=== PATIENT | male | born 1950 | race Caucasian/White ===

== ENCOUNTER → 2016-10-24 | Outpatient (CLI) | payer BC ==
[~2016-10-24] MED LIST: CIPR1TAB10 PO; COEN1CAP17 PO; GARL1TAB8 PO; GREE250C2 PO; HYDR-5688 PO; IVIG IV; MILK140C PO; MULTTAB58 PO; NUTR1000 PO; PHEN-876 PO
[2016-10-24 17:13] LABS: IMMUNOGLOBULN A < 7.8 mg/dL (70-400)
== END | disposition home or self-care (01) ==
LOC: C.LAB1850 15:43
PROVIDERS: ATTEND Internal Medicine Pulmonary Disease
DX: Z94.81 Bone marrow transplant status (principal)

== ENCOUNTER → 2016-11-05 | Outpatient (CLI) | payer BC ==
[~2016-11-05] MED LIST changes: -CIPR1TAB10 PO; -HYDR-5688 PO; -PHEN-876 PO
[2016-11-05 10:43] LABS: ESTIMATED AVERAGE GLUCOSE 134 mg/dl; HA1C FLAG Normal (Normal)
[2016-11-05 10:48] LABS: ALT/SGPT 27 U/L (12-78); AST/SGOT 23 U/L (15-37); BLOOD UREA NITROGEN 22 mg/dl (7-18); BUN/CREATININE RATIO 16.9 (10-20); CALCIUM 8.9 mg/dl (8.5-10.1); CARBON DIOXIDE 30 mmol/L (21-32); CHLORIDE 107 mmol/L (98-107); CHOLESTEROL 242 mg/dl (0-200); GLUCOSE 101 mg/dl (70-99); POTASSIUM 4.2 mmol/L (3.5-5.1); SODIUM 142 mmol/L (136-145)
[2016-11-05 10:51] LABS: CHOLESTEROL/HDL RATIO 6.4; HDL CHOLESTEROL 38 mg/dl; LDL CHOLESTEROL CALCULATED 144 mg/dl; TRIGLYCERIDES 299 mg/dl (0-150); VERY LOW DENSITY LIPOPROT CALC 60 mg/dl
== END | disposition home or self-care (01) ==
LOC: C.LABBC 08:11
PROVIDERS: ATTEND Internal Medicine
DX: R73.9 Hyperglycemia, unspecified (principal); E78.5 Hyperlipidemia, unspecified

== ENCOUNTER → 2017-09-18 | Outpatient (CLI) | payer OTHER ==
[2017-09-18 10:59] LABS: BASO % 0.3 %; BASO ABS # 0.02 K/uL (0-0.2); EOS % 2.9 %; EOS ABS # 0.21 K/uL (0-0.5); HEMATOCRIT 36.7 % (42-52); HEMOGLOBIN 12.6 g/dL (14.0-18.0); IG# 0.02 K/uL (0.00-0.02); LYMPH % 28.9 %; MEAN CORPUSCULAR HEMOGLOBIN 27.8 pg (25-34); MEAN CORPUSCULAR HGB CONC 34.3 g/dl (32-36); MEAN PLATELET VOLUME 10.5 fL (7.4-10.4); MONO ABS # 0.87 K/uL (0.11-0.59); NEUT % 55.6 %; NEUT ABS # 4.04 K/uL (1.4-6.5); PLATELET COUNT 271 K/uL (130-400); RED CELL DISTRIBUTION WIDTH CV 14.5 % (11.5-14.5); RED CELL DISTRIBUTION WIDTH SD 42.5 fL (36.4-46.3); WHITE BLOOD COUNT 7.26 K/uL (4.8-10.8)
[2017-09-18 11:38] LABS: BLOOD UREA NITROGEN 21 mg/dl (7-18); CALCIUM 9.1 mg/dl (8.5-10.1); CARBON DIOXIDE 26 mmol/L (21-32); CHOLESTEROL 282 mg/dl (0-200); GLUCOSE 105 mg/dl (70-99); SODIUM 138 mmol/L (136-145)
[2017-09-18 11:42] LABS: LDL CHOLESTEROL CALCULATED 178 mg/dl
== END | disposition home or self-care (01) ==
LOC: C.LABBC 07:35
PROVIDERS: ATTEND Internal Medicine
DX: Z85.72 Personal history of non-Hodgkin lymphomas (principal); E78.5 Hyperlipidemia, unspecified; R73.9 Hyperglycemia, unspecified; N28.9 Disorder of kidney and ureter, unspecified

== ENCOUNTER → 2017-11-27 | Outpatient (CLI) | payer OTHER ==
[2017-11-27 13:08] LABS: ALBUMIN 3.7 gm/dl (3.4-5.0); ALT/SGPT 32 U/L (12-78); AST/SGOT 25 U/L (15-37); BLOOD UREA NITROGEN 27 mg/dl (7-18); CALCIUM 9.2 mg/dl (8.5-10.1); CARBON DIOXIDE 28 mmol/L (21-32); CREATININE 1.46 mg/dl (0.60-1.40); GLUCOSE 96 mg/dl (70-99); POTASSIUM 4.1 mmol/L (3.5-5.1); SODIUM 136 mmol/L (136-145)
[2017-11-27 13:19] LABS: ALKALINE PHOSPHATASE 59 U/L (45-117); TOTAL PROTEIN 8.3 gm/dl (6.4-8.2)
== END | disposition home or self-care (01) ==
LOC: C.LAB1850 09:42
PROVIDERS: ATTEND Physician Assistant
DX: R42 Dizziness and giddiness (principal); H53.9 Unspecified visual disturbance; Z94.81 Bone marrow transplant status

== ENCOUNTER → 2017-12-02 | Outpatient (CLI) | payer OTHER | END | disposition home or self-care (01) | LOC: C.LABBC 08:53 | PROVIDERS: ATTEND Physician Assistant | DX: R42 Dizziness and giddiness (principal) ==

== ENCOUNTER → 2017-12-22 | Outpatient (CLI) | payer OTHER ==
--- NOTE | 2017-12-22 16:13 | DIAGNOSTIC IMAGING REPORT ---
L HIP UNILATERAL 2 VIEWS HISTORY: 67 years-old Male M54.32 Sciatica of left [id number] acute left hip pain COMPARISON: CT abdomen and pelvis 04/15/2016 TECHNIQUE: 2 views of the left hip FINDINGS: Mild osteoarthritis about the left femoral acetabular joint with mild general changes also seen within the pubic symphysis and bilateral SI joints. No acute fracture or dislocation is identified. Soft tissues are within normal limits without opaque foreign body. Probable phleboliths project over the pelvis. IMPRESSION: No acute fracture or dislocation. The above report was generated using voice recognition software. It may contain grammatical, syntax or spelling errors. Electronically signed by: Bret Hartley M.D. 12/22/2017 4:12 PM Dictated Date/Time: 12/22/2017 4:11 PM
--- NOTE | 2017-12-22 16:22 | DIAGNOSTIC IMAGING REPORT ---
L-SPINE MIN 4 VIEWS ROUTINE HISTORY: 67 years-old Male M54.32 Sciatica of left [id number] acute left-sided back pain COMPARISON: CT abdomen and pelvis 04/15/2016 TECHNIQUE: 5 views of the lumbar spine FINDINGS: 5 nonrib-bearing lumbar type vertebral segments are present. There is mild convex left curvature of the lumbar spine. No acute fracture or subluxation. Moderate to severe intervertebral disc space narrowing at L4-L5 and L5-S1 with moderate facet arthrosis also seen at these levels. Minimal multilevel endplate spurring. Intervertebral disc space narrowing at T9-T10. Indeterminate cluster of calcifications measuring up to 2.1 cm are seen projecting about the midabdomen, best seen on the RPO view within the expected region of the right upper quadrant, not definitively seen on the additional views. Soft tissues are otherwise unremarkable. IMPRESSION: 1. No acute fracture or subluxation identified. 2. Degenerative changes as above. The above report was generated using voice recognition software. It may contain grammatical, syntax or spelling errors. Electronically signed by: Bret Hartley M.D. 12/22/2017 4:20 PM Dictated Date/Time: 12/22/2017 4:17 PM
== END | disposition home or self-care (01) ==
LOC: C.RAD1850 15:54
PROVIDERS: ATTEND Internal Medicine
DX: M54.32 Sciatica, left side (principal)

== ENCOUNTER 2025-02-03 11:17 | Observation (INO) ==
[2025-02-03] MEDS: OPTIRAY 320 125ml IV ONE (11:40)
--- NOTE | 2025-02-03 11:56 | CT Scan Report ---
CT SCAN OF THE BRAIN WITHOUT IV CONTRAST CLINICAL HISTORY: Neurological deficit. Stroke like symptoms COMPARISON STUDY: No prior studies are available for comparison at the time of dictation. TECHNIQUE: Unenhanced axial CT scan of the brain is performed from the vertex to the skull base. A do se lowering technique was utilized adhering to the principles of ALARA. FINDINGS: Brain parenchyma: There is age-related involutional change noting mild subcortical and periventricula r microangiopathic disease. There is no hemorrhage, mass effect, or evidence of acute territorial isc hemia by CT criteria. Leyva-white matter differentiation is preserved. No extra-axial fluid collection is seen. Ventricles, sulci, cisterns: Prominent secondary to involutional change. Intracranial vasculature: There is atherosclerotic calcification of the cavernous carotid arteries. Calvarium: Unremarkable. Sinuses and mastoids: The visualized paranasal sinuses are clear. The mastoid air cells are well pneu matized. Orbits: The bony orbits are grossly intact. There are bilateral ocular lens implants. IMPRESSION: There is no hemorrhage, mass effect, or evidence of acute territorial ischemia by CT merlene farias. ACT 112: Negative or not required by law. Electronically signed by: Curtis Fonseca M.D. 02/03/2025 11:55 AM
--- NOTE | 2025-02-03 11:57 | CT Scan Report ---
CTA ANGIOGRAPHY OF THE HEAD CLINICAL HISTORY: neuro deficit, acute stroke suspected COMPARISON STUDY: No previous studies for comparison. TECHNIQUE: Helical axial images of the head were obtained following uneventful intravenous administr ation of 118 cc of Optiray. Sagittal and coronal reconstructions were viewed as well as maximal inten sity projections on an independent 3-D workstation. Automated exposure control was utilized for the study. A dose lowering technique was utilized adhering to the principles of ALARA. FINDINGS: Please note that the head CT will be reported separately. No acute intracranial hemorrhage, midline shift or mass effect is present. Ventricular system is normal. Basal cisterns are patent. Th ere are no extra-axial collections. The bilateral M1, M2, A1 and A2 segments are patent. There is no intracranial aneurysm. Posterior circulation is intact. No intracranial vessel occlusion is identifie d. 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 IMPRESSION: Unremarkable CTA of the head. ACT 112: Negative or not required by law. Electronically signed by: Martin Walls M.D. 02/03/2025 11:56 AM
[2025-02-03 11:58] LABS: Hematocrit (blood only) 35.7 % (42.0-52.0); Hemoglobin 12.3 g/dl (14.0-18.0); Immature Granulocytes # (auto) 0.02 K/uL (0.01-0.20); Immature Granulocytes % (auto) 0.4 %; Mean Corpuscular Hemoglobin 27.9 pg (25.0-34.0); Mean Corpuscular Volume 81.0 fL (80.0-100.0); Platelet Count 222 K/uL (130-400); RDW Standard Deviation 39.6 fL (36.4-46.3); Red Blood Count 4.41 M/uL (4.70-6.10); White Blood Count 5.14 K/ul (4.8-10.8)
--- NOTE | 2025-02-03 11:59 | CT Scan Report ---
CT angio neck with con CLINICAL HISTORY: neuro deficit, acute stroke suspected. TECHNIQUE: Following the IV administration of 120 of Optiray, CT angiogram of the neck was performed from the aortic arch to the skull base. Images are reviewed in the axial, sagittal, and coronal plane s. 3-D MIPS images are created and assessed. IV contrast was administered without complication. All m easurements were calculated based on NASCET criteria. A dose lowering technique was utilized adherin g to the principles of ALARA. CT DOSE: 1305.59 mGy.cm COMPARISON STUDY: None FINDINGS: Bilateral common and internal carotid arteries and bilateral vertebral arteries showed no s ignificant narrowing or occlusion. There is a multinodular goiter. There are cervical spine degenerat carissa changes. IMPRESSION: No significant arterial narrowing or occlusion seen at the neck. ACT 112: Negative or not required by law. The above report was generated using voice recognition software. It may contain grammatical, syntax o r spelling errors. Electronically signed by: Willma Faith M.D. 02/03/2025 11:58 AM
[2025-02-03 12:16] LABS: Alanine Aminotransferase 16.0 U/L (7-52); Albumin Globulin Ratio 1.1 (0.9-2); Alkaline Phosphatase 46.0 U/L (34-104); Anion Gap 6.0 (3-11); Bilirubin,Total 1.0 mg/dl (0.2-1.0); Blood Urea Nitrogen 25.0 mg/dl (6-23); Calcium 9.0 mg/dl (8.6-10.3); Carbon Dioxide 27.0 mmol/L (21-32); Chloride 105.0 mmol/L (98-107); Creatinine Clr Calc Pharmacy 45.4 ml/min; Globulin 3.4 gm/dl (2.5-4.0); Glucose 102.0 mg/dl (70-99(Fasting)); Magnesium 1.8 mg/dl (1.7-2.4); Potassium 4.2 mmol/L (3.5-5.1); Sodium 138.0 mmol/L (136-145); Total Protein 7.2 gm/dl (6.0-8.3)
--- NOTE | 2025-02-03 12:24 | XRay Report ---
XR chest 1V portable CLINICAL HISTORY: neuro deficit, acute stroke suspected COMPARISON STUDY: 10/29/2021 FINDINGS: There is mild cardiomegaly without pulmonary vascular congestion. Inspiration is very shall ow which limits the exam. No consolidation or pleural effusion seen. No pneumothorax. IMPRESSION: Shallow inspiration limits the exam. No acute findings seen. ACT 112: Negative or not required by law. Electronically signed by: Willam Faith M.D. 02/03/2025 12:23 PM
[2025-02-03 12:29] LABS: INR 1.0 (0.9-1.1); Partial Thromboplastin Time 26 Seconds (21-31); Prothrombin Time 10.4 Seconds (9.0-12.0)
--- NOTE | 2025-02-03 13:13 | History & Physical Report ---
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 CT head and neck with no acute findings. Patient is being admitted for possible Transient Ischemic Attack and further workup #TIA -Etiology is consistent with TIA -Initially reported dizziness, facial droop, slurring of speech and dizziness -Symptoms lasted for approximately 20-25 minutes and resolved after that -NIHSS score of zero, not candidate for tPA as symptoms -Loading dose of Aspirin and Plavix given -Continue Aspirin 81mg and Plavix 75mg -Atorvastatin 40mh qday -EKG: he has sinus bradycardia with 1st degree AV block -No acute findings seen on chest XR -CTH, CT Angio of head and neck with no acute findings -CBC with low hemoglobin 12.3; CMP looks normal -MRI Brain w/o contrast; MRA Brain w/o contrast, MRA neck w and without contrast -Troponin negative -Pending lipid panel and Hba1c -Admit to tele -2D Echo bubble study Chronic conditions BPH: Continue Tamsulosin Dispo: med/surg with tele Code: DNR/DNI DVT prophylaxis: hold for now History of Present Illness Chief Complaint: Stroke Like Symptoms Primary Care Provider: MD Doug ToneyCarlos spears is a 74 Y O male with PMH of BPH, Non Hodgkin Lymphoma s/p bone marrow transplantation presented to ER today He was working in the basement and he got dizzy and after that started having blurry vision and slurring of speech. Speech slurring lasted for about 20 -25 minutes and resolved after that He was not able to stand and needed wheel chair to get to the car. Also his mentioned he had some drooping of left side of face. Immediately after the event they came to hospital. No nausea, vomiting , headache, abdominal pain Currently patient still complaining of double vision , dizziness partially resolved , speech slurring is resolved He used to smoke but left when he was 36 and occasional drinker. Living situation: Lives with his ; son is here for summer vacation to help them BP on presentation:152/91 Allergies Allergy/AdvReac Type Severity Reaction Status Date / Time No Known Drug Allergies Allergy Verified 10/13/24 08:58 Home Medications Medication Instructions Recorded Confirmed Type garlic 500 mg PO QAM 01/05/19 02/03/25 History milk thistle seed extract 200 mg 200 mg PO QAM 01/05/19 02/03/25 History capsule multivitamin with iron 1 tab PO QAM 01/05/19 02/03/25 History coenzyme Q10 100 mg tablet 100 mg PO QAM 03/08/19 02/03/25 History loratadine 10 mg tablet (Claritin) 10 mg PO QAM PRN Allergy Symptoms 10/03/19 02/03/25 History cholecalciferol (vitamin D3) 50 2,000 unit PO QAM 11/12/21 02/03/25 History mcg (2,000 unit) capsule (Vitamin D3) alfuzosin 10 mg tablet,extended 10 mg PO HS #90 tabs 01/08/24 02/03/25 Rx release 24 hr sildenafil 50 mg tablet 50 mg PO DAILY PRN sexual activity 11/03/24 02/03/25 Rx #10 tabs icosapent ethyl 1 gram capsule 2 g (2 x 1 gram) PO BID #360 caps 11/10/24 0 02/03/25 Rx (Vascepa) immune glob,gamma(IgG) 10 10 g IV UD 02/03/25 02/03/25 History aseq-uba-npse-IgA 0 to 50 mcg/mL IV solution (Gammagard S-D (IgA < 1 mcg/mL)) Past Med/Surg History Problem List (Updated 02/03/25 @ 16:11 by Tre Loera MD) Transient ischemic attack Ambulatory dysfunction (Acute) Double vision (Acute) Acute CVA (cerebrovascular accident) (Acute) Elevated PSA Right hip pain Olecranon bursitis Encounter for pre-operative examination Hypogammaglobulinemia, acquired (Chronic) Non-Hodgkin lymphoma in remission (Chronic) Anemia (Chronic) Bladder cancer (Chronic) Pre-diabetes (Chronic) Hypercholesterolemia (Acute) Enlarged prostate with lower urinary tract symptoms (LUTS) (Acute) Fever Insect bite History of colon polyps Dyslipidemia (Acute) Migraine headache (Acute) Nontoxic multinodular goiter (Acute) Renal insufficiency (Acute) Sciatica of left side (Acute) Medical History Osteoarthritis BPH (benign prostatic hyperplasia) Borderline diabetes History of skin cancer History of bladder cancer History of lymphoma History of migraine headaches Surgical History History of cataract surgery History of wisdom tooth extraction History of biopsy of bladder History of colonoscopy Status post surgical removal and fulguration of bladder neoplasm (~2016) Status post autologous bone marrow transplant Family History Mother Breast cancer Cancer Father Prostate cancer Grandmother (Maternal) Diabetes Grandmother (Paternal) Diabetes Sister Kidney disease Cancer Other No family history of adverse response to anesthesia Denies family history of Crohn's disease Heart disease Lung cancer Lung disease Hypertension Stroke Social History Smoking Status: Former smoker Age Quit Using Tobacco: 24; Second Hand Exposure: No; Do You Dip or Chew Tobacco: No; Tobacco Cessation Education Requested by Patient: No Hx Alcohol Use: Yes Alcohol type: beer Hx Substance Use: No Preferred Language: Vietnamese Communication Ability: Effective Visual Impairment: No Limitations 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 Bench Required: No Beliefs That Will Affect Care: None marital status: Current Living Situation: Spouse and Family Current Living Situation Comment: home with current occupational status: employed 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 Other Information That Helps Us Care for You: No Feels Safe at Home: Yes Safety Concerns: Feels Safe At This Time Childhood Exposure to Second-Hand Smoke: No caffeine: Yes Dental Care, Regularly: Yes Physical Activity Frequency: 3-4 Times per Week Seatbelt Use: always Sunscreen Use: Yes Assistive Devices: None Review of Systems Review of Systems: as per HPI Physical Exam Physical Exam: Constitutional: Well appearing, No acute distress, PILCCOD: Negative HEENT: Atraumatic, Normocephalic, No conjunctival injection CVS: S1 S2 no murmur, Regular Rhythm, no LE edema Respiratory: BL equal air entry with NVBS. No rhonchi, wheezes, or crackles. No increased work of breathing GI: Soft, Nondistended, Nontender, Normal Bowel sounds + MSK: No gross deformities noted Skin: Warm, Dry, No rashes Neuro: Alert, Oriented to TPP, No Focal deficit Psych: Mood and Affect congruent, Cooperative on exam Results & Data Results & Data Vital Signs (Past 12 Hours) Vital Signs Temp Pulse Pulse Resp BP BP Pulse Ox 02/03/25 13:00 43 L 13 138/64 97 02/03/25 12:30 40 L 16 145/75 H 97 02/03/25 12:10 48 L 20 130/104 H 95 02/03/25 12:01 49 L 16 130/104 H 95 02/03/25 11:55 47 L 02/03/25 11:49 02/03/25 11:48 44 L 19 145/67 H 95 02/03/25 11:23 36.4 C L 48 L 18 138/63 97 O2 Del Method 02/03/25 13:00 02/03/25 12:30 02/03/25 12:10 Room Air 02/03/25 12:01 Room Air 02/03/25 11:55 02/03/25 11:49 Room Air 02/03/25 11:48 Room Air 02/03/25 11:23 Room Air Supervising Physician Co-Signing Physician Notes I personally examined the patient and verified all vizcaino points of history and exam, discussed case, and agree with decision making with Dr Loera Double vision improving but still remains. Otherwise symptoms have resolved. Vitals noted, in general he is awake and alert pleasant no distress. HEENT normocephalic atraumatic mucous membranes moist. He is frequently closing 1 eye to alleviate the double vision, but he does note that it is improving. Breathing unlabored no accessory muscle use good effort. Skin without rashes pallor or icterus. Labs and diagnostics noted. TIA versus CVAgiven age gender and dyslipidemia, intravascular atherosclerosis would be the most likely. Large vessel atheroembolic ruled out by CT angiograms. Age and prior NHL does make me worry about atrial fibrillation/central embolic in him even more than averagecardiac monitoring, echocardiogram, and if the above are negative definitely an event monitor. Discussed lipidshe notes that he was on some sort of statin 15 years ago that caused acheshe does not remember what, and as we discussed risk/benefit he is certainly willing to give it another try. Given that he was on something 15 years ago, we discussed that most likely it would probably have not been rosuvastatin just simply because coverage of that was difficult at the time. Will reach out to his PCP to see if he at all remembers, and if not we will give trial of rosuvastatin. DVT proph - lovenox
--- NOTE | 2025-02-03 13:14 | Emergency Department Note ---
Impression & Plan Acute CVA (cerebrovascular accident), Double vision, Ambulatory dysfunction ED Provider Note NAME: ALBINA FRANCIS AGE: 74 SEX: M : 1950 ARRIVES VIA: Walk-In INFORMANT: Patient ED PROVIDER(S): Merlin Bowens DO CHIEF COMPLAINT: Slurred speech, double vision HPI: Patient is a 74-year-old male who presents ER for slurred speech, double vision and trouble walking. Symptoms initially started around 1050 to 11 AM. He has never had this before. Does have a history of vertigo per but notes this is completely different and he never had any other symptoms with it. Denies any focal weakness or numbness. No chest pain or shortness of breath. No nausea vomiting or diarrhea. He denies any focal weakness or numbness in the arms or legs. He notes his symptoms are improving at this time. ADDITIONAL HISTORY OBTAINED: Per HPI Chronic Medical/Social Conditions Affecting Care: Per HPI PAST MEDICAL HISTORY:See Below PAST SURGICAL HISTORY:See Below FAMILY HISTORY:See Below SOCIAL HISTORY:See Below HOME MEDICATIONS:See Below ALLERGIES:See Below VITALS:See Below PHYSICAL EXAMINATION: GENERAL: Sitting up in bed, alert, well appearing, well nourished, no distress, non-toxic EYE EXAM: normal conjunctiva. Disconjugate gaze OROPHARYNX: no exudate, no erythema, lips, buccal mucosa, and tongue normal and mucous membranes are moist NECK: supple, no nuchal rigidity, no adenopathy, non-tender LUNGS: Clear to auscultation. Normal chest wall mechanics HEART: no murmurs, S1 normal and S2 normal ABDOMEN: abdomen soft, non-tender, normo-active bowel sounds, no masses, no rebound or guarding. UPPER EXTREMITIES: upper extremities are grossly normal. LOWER EXTREMITIES: No pitting edema. NEURO EXAM: Normal sensorium, no drift. Pvozir-gc-robu is intact. No focal weakness in the arms or legs. Disconjugate gaze with the eyes and vertical misalignment of the eyes MEDICAL DECISION MAKING: Patient is a 74-year-old male who presents to the ER for the above-stated complaint. Patient had sudden onset of double vision, unsteadiness, dizziness and slurred speech was started around 1050. IVs were established and blood work was obtained. Patient was initially seen in the room. Stroke alert was immediately called. Patient was taken emergently to CT. CTs and CTA showed no large bleeds or LVO's. Discussed with [facility] telestroke Dr. Boyer. He saw and evaluate the patient. Symptoms improved. At this time he did not feel the patient was a TNK candidate. He does feel this consistent with posterior stroke. Discussed case with the hospitalist for further evaluation management and treatment. Consults/Care Managements Discussions: Per [facility] Triage Nursing notes reviewed. Limited review of prior medical records performed Vital Signs: reviewed and remarkable for hypertension Differential diagnosis: Differential Diagnosis includes but is not limited to ischemic Stroke, hemorrhagic stroke, bells palsy, mass, neoplasm, migraine headache, seizure, subarachnoid hemorrhage, TIA, and transient global amnesia. ER treatment provided: See below Diagnostics interpreted by me include EKG and cardiac monitoring as listed below: -Cardiac Monitoring: An order was placed for continuous cardiac monitoring. The monitor shows a rate of 45 with sinus rhythm. -ECG: Sinus bradycardia rate of 43 Left axis No PVCs QTc 395 -Laboratory studies:Interpreted by me as stated above in MDM and shown below. Imaging studies: Xrays: As interpreted by me: Portable AP upright 1 view of the chest shows no focal infiltrate CTs show: CTAs of the head and neck were negative per radiology Procedures:none Critical Care: I have personally spent 32 minutes of critical care time in the direct management of this patient. This includes bedside care, interpretation of diagnostic studies, and testing, discussion with consultants, patient, and family members, and other required patient management activities. This 32 minutes is in excess of all separately billable procedures. Past Med/Surg History Problem List (Updated 02/03/25 @ 14:33 by Merlin Bowens DO) Ambulatory dysfunction (Acute) Double vision (Acute) Acute CVA (cerebrovascular accident) (Acute) Elevated PSA Right hip pain Olecranon bursitis Encounter for pre-operative examination Hypogammaglobulinemia, acquired (Chronic) Non-Hodgkin lymphoma in remission (Chronic) Anemia (Chronic) Bladder cancer (Chronic) Pre-diabetes (Chronic) Hypercholesterolemia (Acute) Enlarged prostate with lower urinary tract symptoms (LUTS) (Acute) Fever Insect bite History of colon polyps Dyslipidemia (Acute) Migraine headache (Acute) Nontoxic multinodular goiter (Acute) Renal insufficiency (Acute) Sciatica of left side (Acute) Medical History Osteoarthritis BPH (benign prostatic hyperplasia) Borderline diabetes History of skin cancer History of bladder cancer History of lymphoma History of migraine headaches Surgical History History of cataract surgery History of wisdom tooth extraction History of biopsy of bladder History of colonoscopy Status post surgical removal and fulguration of bladder neoplasm (~2016) Status post autologous bone marrow transplant Family History Mother Breast cancer Cancer Father Prostate cancer Grandmother (Maternal) Diabetes Grandmother (Paternal) Diabetes Sister Kidney disease Cancer Other No family history of adverse response to anesthesia Denies family history of Crohn's disease Heart disease Lung cancer Lung disease Hypertension Stroke Social History Smoking Status: Former smoker Age Quit Using Tobacco: 24; Second Hand Exposure: No; Do You Dip or Chew Tobacco: No; Hx Alcohol Use: Yes Alcohol type: wine Hx Substance Use: No Preferred Language: [place] Communication Ability: Effective Visual Impairment: No Limitations Motion Picture Projectionist Required: No Beliefs That Will Affect Care: None marital status: Current Living Situation: Spouse current occupational status: employed 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 Feels Safe at Home: Yes Childhood Exposure to Second-Hand Smoke: No caffeine: Yes Dental Care, Regularly: Yes Physical Activity Frequency: 3-4 Times per Week Seatbelt Use: always Sunscreen Use: Yes Assistive Devices: Glasses Allergies Allergies Allergy/AdvReac Type Severity Reaction Status Date / Time No Known Drug Allergies Allergy Verified 10/13/24 08:58 Home Meds Home Medications Medication Instructions Recorded Confirmed garlic 500 mg PO QAM 01/05/19 02/03/25 milk thistle seed extract 200 mg 200 mg PO QAM 01/05/19 02/03/25 capsule multivitamin with iron 1 tab PO QAM 01/05/19 02/03/25 coenzyme Q10 100 mg tablet 100 mg PO QAM 03/08/19 02/03/25 loratadine 10 mg tablet (Claritin) 10 mg PO QAM PRN Allergy Symptoms 10/03/19 02/03/25 cholecalciferol (vitamin D3) 50 2,000 unit PO QAM 11/12/21 02/03/25 mcg (2,000 unit) capsule (Vitamin D3) immune glob,gamma(IgG) 10 10 g IV UD 02/03/25 02/03/25 iirw-[id number] 0 to 50 mcg/mL IV solution (Gammagard S-D (IgA < 1 mcg/mL)) Previous Rx's Medication Instructions Recorded alfuzosin 10 mg tablet,extended 10 mg PO HS #90 tabs 01/08/24 release 24 hr sildenafil 50 mg tablet 50 mg PO DAILY PRN sexual activity 11/03/24 #10 tabs icosapent ethyl 1 gram capsule 2 g (2 x 1 gram) PO BID #360 caps 11/10/24 (Vascepa) Results & Data (ED) Vital Signs Vital Signs - 24 hr 02/03/25 11:23 02/03/25 11:48 02/03/25 11:49 Temperature 36.4 C L Temperature Source Temporal Artery Scan Pulse Rate 48 L Pulse Rate [Apical] 44 L Pulse Rate from SpO2 Sensor Respiratory Rate 18 19 Respiratory Effort / Characteristics Non-Labored Spontaneous Non-Labored Spontaneous Respiratory Depth Normal Normal Respiratory Pattern Regular Blood Pressure 138/63 Blood Pressure [Right Arm] 145/67 H Blood Pressure Mean 88 Blood Pressure Mean [Right Arm] 93 Blood Pressure Position [Right Arm] Pulse Oximetry 97 95 Oxygen Delivery Method Room Air Room Air Room Air Sepsis Recent Fever Within 48 Hours No Sepsis New/Unexplained Change in Mental Status Yes Sepsis Action Taken by Nursing No Action Required 02/03/25 11:55 02/03/25 12:01 02/03/25 12:10 Temperature Temperature Source Pulse Rate 47 L Pulse Rate [Apical] 49 L 48 L Pulse Rate from SpO2 Sensor Respiratory Rate 16 20 Respiratory Effort / Characteristics Non-Labored Spontaneous Non-Labored Respiratory Depth Normal Normal Respiratory Pattern Blood Pressure Blood Pressure [Right Arm] 130/104 H 130/104 H Blood Pressure Mean Blood Pressure Mean [Right Arm] 112 112 Blood Pressure Position [Right Arm] Pulse Oximetry 95 95 Oxygen Delivery Method Room Air Room Air Sepsis Recent Fever Within 48 Hours Sepsis New/Unexplained Change in Mental Status Sepsis Action Taken by Nursing 02/03/25 12:30 02/03/25 13:00 02/03/25 13:49 Temperature Temperature Source Pulse Rate 40 L 43 L Pulse Rate [Apical] 45 L Pulse Rate from SpO2 Sensor 41 L 43 L Respiratory Rate 16 13 21 Respiratory Effort / Characteristics Respiratory Depth Respiratory Pattern Blood Pressure 145/75 H 138/64 Blood Pressure [Right Arm] 152/91 H Blood Pressure Mean 98 88 Blood Pressure Mean [Right Arm] 111 Blood Pressure Position [Right Arm] Semi-fowlers Pulse Oximetry 97 97 97 Oxygen Delivery Method Room Air Sepsis Recent Fever Within 48 Hours Sepsis New/Unexplained Change in Mental Status Sepsis Action Taken by Nursing Laboratory Data 02/03/25 11:36 02/03/25 11:36 Lab Results 02/03/25 02/03/25 Range/Units 11:36 11:46 WBC 5.14 (4.8-10.8) K/ul RBC 4.41 L (4.70-6.10) M/uL Hgb 12.3 L (14.0-18.0) g/dl POC Hgb 12.6 L (14.0-18.0) g/dl Hct 35.7 L (42.0-52.0) % POC Hct 37 L (42-52) % MCV 81.0 (80.0-100.0) fL MCH 27.9 (25.0-34.0) pg MCHC 34.5 (32.0-36.0) g/dL RDW Std Deviation 39.6 (36.4-46.3) fL RDW Coeff of Carie 13.4 (11.5-14.5) % Plt Count 222 (130-400) K/uL MPV 10.1 (9.4-12.4) fL Immature Gran % (Auto) 0.4 % Neut % (Auto) 46.7 % Lymph % (Auto) 37.9 % [place] % (Auto) 12.3 % Eos % (Auto) 1.9 % Baso % (Auto) 0.8 % Neut # (Auto) 2.40 (1.40-6.50) K/uL Lymph # (Auto) 1.95 (1.20-3.40) K/uL [place] # (Auto) 0.63 H (0.11-0.59) K/uL Eos # (Auto) 0.10 (0.00-0.50) K/uL Baso # (Auto) 0.04 (0.00-0.20) K/uL Immature Gran # (Auto) 0.02 (0.01-0.20) K/uL PT 10.4 (9.0-12.0) Seconds INR 1.0 (0.9-1.1) APTT 26 (21-31) Seconds PTT Ratio 1.0 POC Sodium 140 (135-144) mmol/L Sodium 138 (136-145) mmol/L POC Potassium 4.2 (3.3-5.0) mmol/L Potassium 4.2 (3.5-5.1) mmol/L POC Chloride 104 (101-112) mmol/L Chloride 105 (98-107) mmol/L Carbon Dioxide 27 (21-32) mmol/L POC Total CO2 24 (24-31) mmol/L Anion Gap 6 (3-11) POC Anion Gap 16.0 (16-25) mmol/L POC BUN 25 H (7-18) mg/dl BUN 25 H (6-23) mg/dl Creatinine 1.34 (0.6-1.4) mg/dl POC Creatinine 1.5 H (0.6-1.3) mg/dl Est Cr Clr Drug Dosing 45.4 ml/min eGFR 54.90 BUN/Creatinine Ratio 18.7 (10-20) Glucose 102 H (70-99(Fasting)) mg/dl POC Glucose (other) 102 H (70-99) mg/dl Calcium 9.0 (8.6-10.3) mg/dl POC Ioniz Calcium Kitty 1.19 (1.12-1.32) mmol/l Magnesium 1.8 (1.7-2.4) mg/dl Total Bilirubin 1.0 (0.2-1.0) mg/dl AST 25 (13-39) U/L ALT 16 (7-52) U/L Alkaline Phosphatase 46 (34-104) U/L Troponin I High Sens 13.8 (0-20) pg/ml Total Protein 7.2 (6.0-8.3) gm/dl Albumin 3.8 (3.4-5.0) gm/dl Globulin 3.4 (2.5-4.0) gm/dl Albumin/Globulin Ratio 1.1 (0.9-2) Administered Medications Discontinued Medications Ioversol (Optiray 320 125ml) 118 ml IV ONCE ONE Stop: 02/03/25 11:41 Last Admin: 02/03/25 11:40 Dose: 118 ml Documented By: [facility] Data Radiologist's Impression: Chest X-Ray 02/03/25 11:34 XR chest 1V portable CLINICAL HISTORY: neuro deficit, acute stroke suspected COMPARISON STUDY: 10/29/2021 FINDINGS: There is mild cardiomegaly without pulmonary vascular congestion. Inspiration is very shallow which limits the exam. No consolidation or pleural effusion seen. No pneumothorax. IMPRESSION: Shallow inspiration limits the exam. No acute findings seen. ACT 112: Negative or not required by law. Electronically signed by: Willam Faith M.D. 02/03/2025 12:[address] 02/03/25 11:34 CT SCAN OF THE BRAIN WITHOUT IV CONTRAST CLINICAL HISTORY: Neurological deficit. Stroke like symptoms COMPARISON STUDY: No prior studies are available for comparison at the time of dictation. TECHNIQUE: Unenhanced axial CT scan of the brain is performed from the vertex to the skull base. A dose lowering technique was utilized adhering to the principles of ALARA. FINDINGS: Brain parenchyma: There is age-related involutional change noting mild subcortical and periventricular microangiopathic disease. There is no hemorrhage, mass effect, or evidence of acute territorial ischemia by CT criteria. Leyva-white matter differentiation is preserved. No extra-axial fluid collection is seen. Ventricles, sulci, cisterns: Prominent secondary to involutional change. Intracranial vasculature: There is atherosclerotic calcification of the cavernous carotid arteries. Calvarium: Unremarkable. Sinuses and mastoids: The visualized paranasal sinuses are clear. The mastoid air cells are well pneumatized. Orbits: The bony orbits are grossly intact. There are bilateral ocular lens implants. IMPRESSION: There is no hemorrhage, mass effect, or evidence of acute territorial ischemia by CT criteria. ACT 112: Negative or not required by law. Electronically signed by: Curtis Fonseca M.D. 02/03/2025 11:55 AM Head CTA 02/03/25 11:34 CTA ANGIOGRAPHY OF THE HEAD CLINICAL HISTORY: neuro deficit, acute stroke suspected COMPARISON STUDY: No previous studies for comparison. TECHNIQUE: Helical axial images of the head were obtained following uneventful intravenous administration of 118 cc of Optiray. Sagittal and coronal reconstructions were viewed as well as maximal intensity projections on an independent 3-D workstation. Automated exposure control was utilized for the study. A dose lowering technique was utilized adhering to the principles of ALARA. FINDINGS: Please note that the head CT will be reported separately. No acute intracranial hemorrhage, midline shift or mass effect is present. Ventricular system is normal. Basal cisterns are patent. There are no extra-axial collections. The bilateral M1, M2, A1 and A2 segments are patent. There is no intracranial aneurysm. Posterior circulation is intact. No intracranial vessel occlusion is identified. 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 IMPRESSION: Unremarkable CTA of the head. ACT 112: Negative or not required by law. Electronically signed by: Martin Walls M.D. 02/03/2025 11:56 AM Neck CTA 02/03/25 11:34 CT angio neck with con CLINICAL HISTORY: neuro deficit, acute stroke suspected. TECHNIQUE: Following the IV administration of 120 of Optiray, CT angiogram of the neck was performed from the aortic arch to the skull base. Images are reviewed in the axial, sagittal, and coronal planes. 3-D MIPS images are created and assessed. IV contrast was administered without complication. All measurements were calculated based on NASCET criteria. A dose lowering technique was utilized adhering to the principles of ALARA. CT DOSE: 1305.59 mGy.cm COMPARISON STUDY: None FINDINGS: Bilateral common and internal carotid arteries and bilateral vertebral arteries showed no significant narrowing or occlusion. There is a multinodular goiter. There are cervical spine degenerative changes. IMPRESSION: No significant arterial narrowing or occlusion seen at the neck. ACT 112: Negative or not required by law. The above report was generated using voice recognition software. It may contain grammatical, syntax or spelling errors. Electronically signed by: Willam Faith M.D. 02/03/2025 11:58 AM Discharge Plan Visit Data Chief Complaint: Stroke/CVA Symptoms Stated Complaint: DIZZY, SOME SLURRING OF WORDS, MOTOR FUNCTION [facility] ED Provider: Merlin Bowens Discharge Problem: Acute CVA (cerebrovascular accident), Double vision, Ambulatory dysfunction Condition: Fair Forms Stand Alone Forms: [employer] Prescriptions Prescriptions: No Action cholecalciferol (vitamin D3) [Vitamin D3] 50 mcg (2,000 unit) capsule 2,000 unit PO QAM Rx Instructions: 02/03- otc unable to verify alfuzosin 10 mg tablet extended release 24 hr 10 mg PO HS Qty: 90 3RF sildenafil 50 mg tablet 50 mg PO DAILY PRN (Reason: sexual activity) Qty: 10 3RF Vascepa 1 gram capsule 2 g PO BID Qty: 360 3RF garlic tablet 500 mg PO QAM Rx Instructions: 02/03- otc unable to verify milk thistle seed extract 200 mg capsule 200 mg PO QAM Rx Instructions: 02/03- otc unable to verify multivitamin with iron tablet 1 tab PO QAM Rx Instructions: 02/03- otc unable to verify coenzyme Q10 100 mg tablet 100 mg PO QAM Rx Instructions: 02/03- otc unable to verify loratadine [Claritin] 10 mg Tablet 10 mg PO QAM PRN (Reason: Allergy Symptoms) Rx Instructions: 02/03- otc unable to verify Gammagard S-D (IgA < 1 mcg/mL) 10 gram recon soln 10 g IV UD Rx Instructions: 02/03- no fill history unable to verify [facility] DIRECTED. INFUSE 80G (800ML) INTRAVENOUSLY EVERY 8 WEEKS. (TO BE ADMINISTERED AT [facility]) APPROVED thru medical benefit GOOD 08/27/23-08/25/24 [facility] 08/05/24-08/04/25 [facility]-[id number] Referrals Referrals: Pro,Davin Katz MD [Primary Care Provider] -
--- NOTE | 2025-02-03 14:45 | Electrocardiogram Report ---
Test Reason : Blood Pressure : */* mmHG Vent. Rate : 43 BPM Atrial Rate : 43 BPM P-R Int : 268 ms QRS Dur : 136 ms QT Int : 468 ms P-R-T Axes : 76 -61 7 degrees QTcB Int : 395 ms Marked sinus bradycardia with 1st degree A-V block Left axis deviation Non-specific intra-ventricular conduction block Minimal voltage criteria for LVH, may be normal variant Abnormal ECG When compared with ECG of 29-Oct-2021 09:02, QRS duration has increased Confirmed by Davin Akins ([id number]) on 02/03/2025 2:45:34 PM Referred By: REFERRED SELF Confirmed By: Davin Akins
[2025-02-03] MEDS ORDERED: LORATADINE 10 MG TAB PO PRN (16:09)
[2025-02-03 16:45] LABS: Cholesterol 222.0 mg/dl (0-200); HDL Cholesterol 38.0 mg/dl; Triglycerides 197.0 mg/dl (0-150)
[2025-02-03 17:17] LABS: Hemoglobin A1C 6.4 % (4.5-5.6)
[2025-02-03] MEDS: CLOPIDOGREL BISULFATE 300 MG TAB PO STA (17:18)
[2025-02-03] MEDS: ASPIRIN CHEW 324 MG PO STA (17:18)
[2025-02-03] MEDS: ASPIRIN 81 MG CHEW PO STA (17:18)
[2025-02-03] MEDS: GADOBUTROL 65ML VIAL IV ONE (17:39)
--- NOTE | 2025-02-03 17:48 | Magnetic Resonance Report ---
Clinical History: Blurred vision. Stroke symptoms Technique: Multiple T1 and T2-weighted magnetic resonance images were obtained of the brain without gadolinium contrast Findings: There are areas of apparent restricted diffusion and mild increased T2 signal intensity in the thalami bilaterally. This measures up to 7 mm on the right and 4 mm on the left. No other infarct is identified. No definite focus of demyelination is seen. No definite mass lesion is seen on this noncontrast study. There is no intracranial hemorrhage or other fluid collection. No midline shift or other form of herniation is seen. There is no hydrocephalus. Normal flow-voids are seen within the arteries of the [id number]. The orbits and paranasal sinuses appear normal. The mastoid air cells appear clear. Impression: Suspected small acute or subacute infarcts of the thalami bilaterally ACT 112: Positive. There are findings on this exam that require communication between the performing entity and the patient following Patient Test Result Information Act ([place] ACT 112) guidelines. Electronically signed by Ricardo Bucio 02-03-2025 5:48 PM
--- NOTE | 2025-02-03 17:50 | Magnetic Resonance Report ---
Clinical History: Blurred vision. Stroke symptoms Technique: Magnetic resonance angiography was performed of the [place] using a 3 D time of flight technique. Angiographic reconstructions were obtained Findings: The visualized internal carotid arteries appear unremarkable bilaterally. No definite stenosis or aneurysm is identified of the anterior, middle, or posterior cerebral artery circulations bilaterally. The cerebellar arteries are patent. The basilar artery appears unremarkable. No vascular malformation is seen. No other definite abnormality is noted. Impression: Unremarkable MRA of the brain Electronically signed by Ricardo Bucio 02-03-2025 5:49 PM
--- NOTE | 2025-02-03 19:19 | Magnetic Resonance Report ---
EXAMINATION: MR angio neck without with contrast CLINICAL HISTORY: TIA blurred vision double vision stroke symptoms PRIORS: None TECHNIQUE: MRI imaging with [id number] and intravenous contrast was performed. FINDINGS: Significant motion artifact greatly degrades image quality. Allowing for this, the common, internal and external carotid arteries are patent and symmetric with no hemodynamically significant stenosis or filling defect. Vertebral arteries are codominant and patent throughout their course. No stenosis or filling defect identified. A left-sided aortic arch is present with appropriate takeoff of the great vessels. Bilateral subclavian arteries within the [id number] and patent. Both vertebral arteries contribute to the basilar artery. Venous contamination noted. Left lobe of the thyroid may be enlarged. IMPRESSION: No MRA evidence of an acute arterial abnormality in the neck. Electronically signed by Shirley Burdick 02-03-2025 7:18 PM
[2025-02-03] MEDS: TAMSULOSIN HCL 0.4 MG CAP PO SCH (20:33)
--- NOTE | 2025-02-04 08:15 | Hospitalist Progress Note ---
Date of Service February 04, 2025 Assessment & Plan (1) Transient ischemic attack: Plan Patient is 74 Y O Male with PMH of BPH and S/P Bone Marrow Transplantation(almost 30 years ago) presented with dizziness, blurry vision, slurring of speech and facial droop . CT head and neck with no acute findings. Patient is being admitted for possible Transient Ischemic Attack and further workup #Ischemic stroke -Initially reported dizziness, facial droop, slurring of speech and dizziness -Symptoms lasted for approximately 20-25 minutes and resolved after that -NIHSS score of zero, not candidate for tPA as symptoms -Loading dose of Aspirin and Plavix given -Continue Aspirin 81mg and Plavix 75mg -Rosuvastatin 40mg qday -EKG: he has sinus bradycardia with 1st degree AV block -No acute findings seen on chest XR -CTH, CT Angio of head and neck with no acute findings -CBC with low hemoglobin 12.3; CMP looks normal -MRI Brain reveals 7 mm infarct in right thalami and 4 mm on the left - MRA neck w and without contrast with no remarkable findings -Troponin negative - Lipid panel with total Cholesterol 224; Triglycerides 338; - Hba1c 6.4 -Admit to tele -2D Echo bubble study Chronic conditions BPH: Continue Tamsulosin Dispo: med/surg with tele Code: DNR/DNI DVT prophylaxis: hold for now Admission and Anticipated Discharge Date Admission Date: February 03, 2025 Subjective Patient is stable . He mentioned his blurry vision is getting better but not completely resolved. No slurring of speech or facial droop. He slept well and no any overnight events. Review of Systems Review of Systems: as per HPI Physical Exam Physical Exam: Constitutional: Well appearing, No acute distress, PILCCOD: Negative HEENT: Atraumatic, Normocephalic, No conjunctival injection CVS: S1 S2 no murmur, Regular Rhythm, no LE edema Respiratory: BL equal air entry with NVBS. No rhonchi, wheezes, or crackles. No increased work of breathing GI: Soft, Nondistended, Nontender, Normal Bowel sounds + MSK: No gross deformities noted Skin: Warm, Dry, No rashes Neuro: Alert, Oriented to TPP, No Focal deficit Psych: Mood and Affect congruent, Cooperative on exam Results & Data Results & Data Vital Signs (Past 12 Hours) Vital Signs Temp Pulse Pulse Resp BP BP Pulse Ox 02/04/25 07:43 36.6 C 52 L 20 111/60 93 02/04/25 02:46 36.5 C 46 L 16 116/64 96 02/03/25 23:19 36.6 C 50 L 18 122/66 96 02/03/25 21:20 53 L O2 Del Method 02/04/25 07:43 Room Air 02/04/25 02:46 Room Air 02/03/25 23:19 Room Air 02/03/25 21:20
[2025-02-04] MEDS: CHOLECALCIFEROL 25 MCG (1000 UNITS) TAB PO SCH (09:34)
[2025-02-04] MEDS: ROSUVASTATIN CALCIUM 20 MG TAB PO SCH (09:34)
[2025-02-04] MEDS: CLOPIDOGREL BISULFATE 75 MG TAB PO SCH (09:35)
[2025-02-04] MEDS: ENOXAPARIN INJ 40 MG/0.4 ML SYR SQ SCH (09:35)
[2025-02-04] MEDS: ASPIRIN 81 MG ECTAB PO SCH (09:35)
[2025-02-04 11:42] VITALS: RESP 16
--- NOTE | 2025-02-04 14:20 | Discharge Summary ---
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 Speech slurring lasted for about 20 -25 minutes and resolved after that He was not able to stand and needed wheel chair to get to the car. Also his mentioned he had some drooping of left side of face. Immediately after the event they came to hospital. No nausea, vomiting , headache, abdominal pain Currently patient still complaining of double vision , dizziness partially resolved , speech slurring is resolved He used to smoke but left when he was 36 and occasional drinker. Living situation: Lives with his ; son is here for summer vacation to help them BP on presentation:152/91 Admission Exam Per Admitting Provider Constitutional: Well appearing, No acute distress, PILCCOD: Negative HEENT: Atraumatic, Normocephalic, No conjunctival injection CVS: S1 S2 no murmur, Regular Rhythm, no LE edema Respiratory: BL equal air entry with NVBS. No rhonchi, wheezes, or crackles. No increased work of breathing GI: Soft, Nondistended, Nontender, Normal Bowel sounds + MSK: No gross deformities noted Skin: Warm, Dry, No rashes Neuro: Alert, Oriented to TPP, No Focal deficit Psych: Mood and Affect congruent, Cooperative on exam Principal Diagnosis 1. Bihemispheric ischemic stroke Discharge Exam Constitutional WD/WN, vitals as above well developed; no acute distress Eyes PERRL, conjunctivae normal, anicteric sclerae ENMT external ear and nose normal, oropharynx normal Ears: no hearing impairment Neck trachea midline, no thyromegaly trachea midline Respiratory normal respiratory effort, lungs clear to auscultation normal respiratory effort and + respiratory distress; no labored breathing and no retractions Auscultation: lungs clear to auscultation bilaterally Cardiovascular RRR, no murmur, no edema Rate/Rhythm: regular rate and regular rhythm Chest (Breasts) normal inspection/palpation of breasts Chest: normal inspection of chest Discharge Data Allergies Allergy/AdvReac Type Severity Reaction Status Date / Time No Known Drug Allergies Allergy Verified 10/13/24 08:58 Consultations 02/03/25 12:49 ED Decision to Admit Stat Ordered Studies 02/03/25 11:34 CT angio head w con Stat CT angio neck with con Stat CT head/brain wo con Stat 02/03/25 16:16 MR angio neck wo/w con Stat MRI Angio Brain [MR angio head wo con] Stat MRI Brain [MR brain wo con] Stat Hospital Course (1) Ambulatory dysfunction: (2) Hypercholesterolemia: (3) Acute CVA (cerebrovascular accident): Plan Patient is 74 Y O Male with PMH of BPH and S/P Bone Marrow Transplantation(almost 30 years ago) presented with dizziness, blurry vision, slurring of speech and facial droop . CT head and neck with no acute findings. Patient was admitted for possible Transient Ischemic Attack and further workup #Ischemic stroke #Bihemispheric ischemic stroke -Initially reported dizziness, facial droop, slurring of speech and dizziness -Symptoms lasted for approximately 20-25 minutes and resolved after that -NIHSS score of zero, not candidate for tPA as symptoms -Loading dose of Aspirin and Plavix given -Continue Aspirin 81mg and Plavix 75mg for 21 days and then aspirin alone -Rosuvastatin 40mg qday -EKG: he has sinus bradycardia with 1st degree AV block -No acute findings seen on chest XR -CTH, CT Angio of head and neck with no acute findings -CBC with low hemoglobin 12.3; CMP looks normal -MRI Brain reveals 7 mm infarct in right thalami and 4 mm on the left - MRA neck w and without contrast with no remarkable findings -Troponin negative - Lipid panel with total Cholesterol 224; Triglycerides 338; - Hba1c 6.4 Chronic conditions BPH: Continue Tamsulosin Total Time Total Time Spent Total Time Spent (In Minutes): >30 Discharge Plan Discharge Items Patient Disposition: Home - Self-Care Reason For Visit: STOKE LIKE SYMPTOMS Discharge Diagnosis: 1. Bihemispheric ischemic stroke Condition on Discharge: Fair Activity: Resume your previous activity Non-emergency contact: Primary Care Provider Call non-emergency contact if: you have any medication questions and your symptoms worsen Follow-up/Referrals: Davin Rosas MD [Primary Care Provider] - Diet: Regular Addtl Attending Provider Instructions: You were admitted to the hospital for symptoms suggestive of stroke. MRI Brain was done which revealed infarction in bilateral thalamus in your brain. You were treated with antiplatelet therapy and statin. To prevent the risk of stroke in future, you need to continue Dual antiplatelet therapy that includes aspirin and Plavix for 21 days and then aspirin alone. You also need to take statin to lower your blood cholesterol level. A discharge summary will be sent to your primary care physician to ensure continuity of care. Please bring this discharge summary with you to your next office appointment so that your provider can review it at that time. Follow-up appointments: Make a follow-up appointment with your PCP within the next week. It is very important that you follow up with them shortly after discharge from the hospital. Medications: Your medication list has been reviewed and reconciled upon discharge to ensure accuracy and continuity of care. An updated list of all your medications is included with your hospital discharge paperwork. Please review this list closely, and make note of any changes. We sent a new medication called Aspirin to your pharmacy. Take it as instructed. We sent a new medication called Plavix to your pharmacy. Take it as instructed We sent a new medication called Rosuvastatin to your pharmacy. Take it as instructed If you have any issues filling these prescriptions, please call [phone] and ask to leave a message for Dr. Tre Loera Take your medications as instructed; do not skip a dose of your medicines. Make sure all of your doctors know every medicine you are taking (including womx-gsh-jyrmcjb medicines, vitamins, and supplements). Call your primary care provider before taking any new medicines (including overthe- counter medicines, vitamins, and supplements), because some of these may interact with your current medications, or may make your symptoms worse. Tell your primary care provider if you cannot afford your medications. CONTACT YOUR PRIMARY CARE PROVIDER if you experience any of the following: Weakness of your arms, face drooping, speech difficulty, sudden trouble seeing and sudden severe headache Difficulty following your treatment plan, or difficulty taking medications CALL 911 OR GO TO THE EMERGENCY DEPARTMENT if you experience any of the following: Sudden, severe abdominal pain or nausea/vomiting Severe chest pain, or chest pain that radiates (moves) to your jaw or arm Sudden, severe shortness of breath or difficulty breathing Thank you for allowing us to participate in your care. . Pending Studies at Discharge: No Stand-Alone Forms: My [facility], Smoking Cessation Medications and DC Order Prescriptions: New clopidogrel 75 mg Tablet 75 mg PO QAM 21 Days Qty: 21 0RF aspirin 81 mg Tablet,Delayed Release (Dr/Ec) 81 mg PO QAM 30 Days Qty: 30 0RF rosuvastatin 20 mg Tablet 40 mg PO QAM 30 Days Qty: 60 1RF Continued cholecalciferol (vitamin D3) [Vitamin D3] 50 mcg (2,000 unit) capsule 2,000 unit PO QAM Rx Instructions: 02/03- otc unable to verify alfuzosin 10 mg tablet extended release 24 hr 10 mg PO HS Qty: 90 3RF sildenafil 50 mg tablet 50 mg PO DAILY PRN (Reason: sexual activity) Qty: 10 3RF Vascepa 1 gram capsule 2 g PO BID Qty: 360 3RF garlic tablet 500 mg PO QAM Rx Instructions: 02/03- otc unable to verify milk thistle seed extract 200 mg capsule 200 mg PO QAM Rx Instructions: 02/03- otc unable to verify multivitamin with iron tablet 1 tab PO QAM Rx Instructions: 02/03- otc unable to verify coenzyme Q10 100 mg tablet 100 mg PO QAM Rx Instructions: 02/03- otc unable to verify loratadine [Claritin] 10 mg Tablet 10 mg PO QAM PRN (Reason: Allergy Symptoms) Rx Instructions: 02/03- otc unable to verify Gammagard S-D (IgA < 1 mcg/mL) 10 gram recon soln 10 g IV UD Rx Instructions: 02/03- no fill history unable to verify [facility] DIRECTED. INFUSE 80G (800ML) INTRAVENOUSLY EVERY 8 WEEKS. (TO BE ADMINISTERED AT [facility]) APPROVED thru medical benefit GOOD 08/27/23-08/25/24 [facility] Good 08/05/24-08/04/25 [facility]-[id number] Discharge Orders: Discharge Order (Routine); Ordered 02/04/25 Ordered By: Merlin Saldivar Admission Data Admit Date/Time: 02/03/25 13:48 Attending Provider: Merlin Saldivar Admit Provider: Tre Loera Primary Care Provider: Davin Rosas Other Providers: Merlin Saldivar Other Interventions: Discharge Summary Assessment (RN) Last Done: 02/04/25 15:20 Supervising Physician Co-Signing Physician Notes I personally examined the patient and verified all vizcaino points of history and exam, discussed case, and agree with decision making with Dr Loera Double vision almost gone. Otherwise feels good. Extensive discussion with patient and on strokes, probable etiology, secondary risk reduction. In discussion, he does note that he was quite dehydrated for several days leading up to event. Vitals noted, in general he is awake and alert pleasant no distress. HEENT normocephalic atraumatic mucous membranes moist. He is frequently closing 1 eye to alleviate the double vision, but he does note that it is improving. Breathing unlabored no accessory muscle use good effort. Skin without rashes pallor or icterus. Labs and diagnostics noted. strokebilateral thalamic, symptoms resolving. Bilateral certainly raises concern for central embolic, but his echo does not show anything warranting anticoagulation, and he has not shown atrial fibrillation. We will set up an event monitor to continue to follow. At the same time, with his age gender and hyperlipidemia, atherosclerotic disease would be quite likelyand given that although it is bihemispheric, it is 2 very small areas, combined with the fact that he was pretty dehydrated leading up to the event, it was likely atherosclerotic with a dehydration "watershed event" leading to the strokes. Because of it being most likely atheroscleroticdual antiplatelets for 3 weeks then monotherapy; discussed statin as a major part of secondary risk reduction as welldiscussed his prior aches, unlikely to have been on Crestor at the time, and is aware now that there is only about a 10% cross-reactivity for having similar aches across statins (obviously he will watch for this and stop the medicine/inform PCP should it happen). Discussed hydration. Discussed lifestyle change and overall secondary risk reduction. Safe/stable for home, PCP next week. DVT proph - lovenox Resident Activity Tracking Resident Involvement: Resident Care Provided Care Provided: Adult Hospital Medicine
--- NOTE | 2025-02-04 14:34 | XCELERA ---
[id number] [id number]
--- NOTE | 2025-02-04 14:58 | Billing Data ---
Date of Service February 04, 2025 Coding Level of Care Code 37698 INP/OBS DISCH >30 MIN
[2025-02-04 15:38] VITALS: BP 119/51; PULSE 51; TEMP 98.1; O2SAT 92
== END 2025-02-04 16:32 | disposition home or self-care (01) | DRG 65 ==
LOC: ED 11:17 → INTOOBSV 13:48 → 2N 13:48